=== PATIENT | female | born 2005 | race Caucasian/White ===

== ENCOUNTER 2024-11-24 08:33 | Emergency (ER) | payer BC, SELFPAY ==
[2024-11-24 08:40] VITALS: BP 126/76; PULSE 85; RESP 14; TEMP 37.1; O2SAT 100
--- OUTSIDE RECORDS SUMMARY | 2024-11-24 08:41 | XMS_ITS | Clinical Summary ---
Author Organization [facility] Address [address] [place] [address] Care Team Providers Care Car Seat Upholsterer Name Role Phone Caridad New MD Primary Care Provider [phone] Source Comments [facility],non-owned Affiliates and Associated Physician Practices is amultiple site organization consisting of ambulatory clinics and hospital sitesin [place], [place], [place] and [place]. This disclosure is being madepursuant to the Care Everywhere program and may not contain all information available regarding this patient. Last updated 18.[facility] Allergies No known active allergies Medications * Be aware that medications may not be up to date on this document. Alwaysverify current medications with the patient. 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 Gender Identity Not on file Sexual Orientation Not on file Last Filed Vital Signs Vital Sign Reading Time Taken Comments Blood Pressure - - Pulse - - Temperature - - Respiratory Rate - - Oxygen Saturation - - Inhaled Oxygen Concentration - - Weight 22.4 kg (49 lb 6.1 oz) 02/26/2012 2:29 P M CDT Height 123 cm (4' 0.43) 02/26/2012 2:29 PM CDT Body Mass Index 14.81 02/26/2012 2:29 PM CDT Plan of Treatment Health Maintenance Due Date Last Done Comments HIV SCREENING 2019 HPV VACCINE (1 - 3-dose series) 2019 CHLAMYDIA/GONORRHEA SCREENING 2020 MENINGOCOCCAL (Group B) VACC INE SHARED DECISION-MAKING (1 of 2 - Standard) 2020 HEPATITIS C SCREENING 04/05/2022 DTAP/TDAP/TD VACCINES (1 - Tdap) 2023 HEPATITIS B VACCINE (1 of 3 - 19+ 3-dose series) 2023 COVID-19 VACCINE (1 - 2023-2 5 season) 2024 DEPRESSION SCREENING 05/14/2024 INFLUENZA VACCINE (#1) 2025 ZOSTER VACCINE (1 of 2) 2054 HIB VACCINE Aged Out No longer eligi ble based on patient's age to complete this topic MENINGOCOCCAL GROUPS A/C/Y/W VACCINE Aged Out No longer eligible b ased on patient's age to complete this topic PNEUMOCOCCAL VACCINE Aged Out No long er eligible based on patient's age to complete this topic Insurance [facility] Care Teams Car Seat Upholsterer Relationship Specialty Start Date End Date Caridad New MD [address] [place] [address] PCP - General 04/12/11
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
--- OUTSIDE RECORDS SUMMARY | 2024-11-24 08:41 | XMS_ITS | Encounter Summary ---
Author Organization [facility] Healthcare Address [address] [place] [address] Care Team Providers Care Slate Picker Name Role Phone No, Physician Primary Care Provider [phone] Conner Nunez MD Unavailable [phone] Encounter Details Date Type Department Care Team (Late st Contact Info) Description 11/12/2024 Results Follow-Up [facility] [address] [place] [address] [address] [place] [address] Conner Nunez MD [address] [place] [address] [address] [place] [address] Transvaginal Social History Tobacco Use Types Packs/Day Years Used Date Smoking Tobacco: Former Vaping Smokeless Tobacco: Never Social Connection and Isolat ion Panel [NHANES] Answer Date Recorded In a typical week, how many times do you talk on the phone with family, friends, or neighbors? More than three times a week 02/18/2024 How often do you get togethe r with friends or relatives? Once a week 02/18/2024 How often do you attend chur ch or anabaptist services? Never 02/18/2024 Do you belong to any clubs o r organizations such as islam groups, unions, fraternal or athletic groups, or [...] staff should administer the PHQ-9) 0 02/18/2024 [facility] of Occupat ional [facility] - Occupational Stress Questionnaire Answer Date Recorded [...] things needed for daily living? No 02/18/2024 [place] Depression Scale Answer Date Recorded [place] Depression Scale Total 0 03/28/2024 The thought [...] any time in the past 12 m [facility], were you homeless or living in a alf (including now)? No 02/18/2024 Personal Safety Answer Date Recorded Have you ever been in or are you currently in a harmful physical or emotional relationship or is someone making you feel afraid or unsafe? 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
--- OUTSIDE RECORDS SUMMARY | 2024-11-24 08:41 | XMS_ITS | Clinical Summary ---
Author Organization [facility] Address [address] [place] [address] Care Team Providers Care Pickup Driver Name Role Phone No, Physician Primary Care Provider [phone] Conner Nunez MD Unavailable [phone] Allergies Active Allergy Reactions Criticality Noted Date Comments Escitalopram Nausea & Vomiting Low 02/08/2024 Medications prenat.vits,saundra,m kh-kava-skpkf tablet Take by mouth Active ibuprofen (ADVIL,MOTRIN) 600 mg tablet Take 1 tablet (600 mg total) by mouth every 6 (six) hours as needed for pain 40 tablet 03/18/20 24 Active levonorgestreL (LILETTA) 20.4 mcg/24 hr (8 [...] 1.5 cm from internal os. Resolved 12/07/23. Encounters Date Type Department Care Team Description 11/12/2024 Results Follow-Up Fallon Blake [address] [facility] [address] [place] [address] Conner Nunez MD Transvaginal 11/03/2024 11:30 AM CDT Ancillary Procedure Fallonanila Blake [address] [facility] [address] [place] [address] Pelvic and perineal pain; Menorrhagia with irregular cycle 10/31/2024 Telephone [place] MONA Blake [address] [facility] [address] [place] [address] Brooklynn Noriega 10/30/2024 12:33 PM CDT - 10/30/2024 3:04 PM CDT [facility] Emergency Department [address] [place] [address] Discharge Disposition: Left without being seen 10/30/2024 Telephone Fallonanila Blake [address] [facility] [address] [place] [address] Catalina Jimenez MA ABSEILING INSTRUCTOR Problem (Heavy bleeding) from Last 3 Months Immunizations Immunization Administration Dates Next Due Influenza, Trivalent, Preservative Free, Intramu scular 02/20/2024 Tdap 02/08/2024 Surgical History Surgery Date Site/Laterality Comments TONSILLECTOMY ADENOIDECTOMY W/ MYRINGOTOMY AND TUBES TYMPANOSTOMY TUBE PLACEMENT Medical History Medical History Date Comments Depression Anxiety PTSD (post-traumatic stress disorder) Family History Medical History Relation Name Comments No Known Problems Father No Known Problems Mother Relation Name Status Comments Father Mother Social History Tobacco Use Types Packs/Day Years [...] often do you attend chur ch or congregation services? Never 02/18/2024 Do you belong to any clubs o r organizations such as lutheran groups, unions, fraternal or athletic groups, or [...] staff should administer the PHQ-9) 0 02/18/2024 [facility] Occupat ional Health - Occupational Stress Questionnaire Answer Date Recorded [...] things needed for daily living? No 02/18/2024 [place] Depression Scale Answer Date Recorded [place] Depression Scale Total 0 03/28/2024 The thought [...] any time in the past 12 m [facility], were you homeless or living in a usp (including now)? No 02/18/2024 Personal Safety Answer Date Recorded Have you ever been in or are you currently in a harmful physical or emotional relationship or is someone making you feel afraid or unsafe? Denies 10/30/2024 Comments No Sex and Gender Information Value Date Recorded Sex Assigned at Not on file Legal Sex Female 4:54 PM MEDICAL CHEMIST Gender Identity Not on file Sexual Orientation Not on file Obstetrics History Para Term AB IAB SAB Ectopic Multiple Livin g Live Births 1 1 1 0 0 0 0 0 0 1 1 Date Outcome GA Total Labor Labor/2nd/3rd Weight Sex Type Anes PTL Zunilda A1 A5 Name Clin 2023 Term 39w 0d 4h 42m 3h 08m/1h 22m/0h 12m 3.519 kg (7 lb 12.1 oz) F Vagina l Epidur al N Livin g 9 9 Tyrella Sal Glass MD Complications:None Delivery Location:This Facil ity ([facility]) Last Filed Vital Signs Vital Sign Reading [...] 10/30/2024 12:55 PM CDT Plan of Treatment Health Maintenance Due Date Last Done Comments Meningococcal B Vaccine (1 of 2 - Standard) 2020 Chlamydia and Gonorrhea (GC/CT) Screening 01/19/2022 01/19/2021 Regular Well Visit/Exam 18-64 2022 Influenza Vaccine (#1) 2025 , 03/03/2020, 02/24/2019, Additional history exists Depression Screening 03/28/2025 03/28/2024, 02/18/2024, 01/21/2024, Additional history exists DTaP/Tdap/Td Vaccine (8 - Td or Tdap) 02/07/2034 02/08/2024, 11/25/2015, 11/16/2009, Additional history exists Hepatitis B Screening Completed 2004 , 2004, 2004, Additional history exists Pneumococcal vaccine <65 Completed 006, 2004, 2004, Additional history exists Varicella Vaccines Completed 11/16/2009, 04/18/2005 Meningococcal Vaccine Aged Out 11/25/2015 No meaghan angela eligible based on patient's age to complete this topic HPV Vaccines Completed 05/16/2016, 11/25/2015 Hepatitis C Screening Completed 08/24/2023, 021 Procedures Procedure Name Priority Date/Time Associated Diagnosis [...] BLOOD ORDERABLE S Final Result [facility] ([place]) [address] [facility] [place] [address] * Differential, auto (10/30/2024 1:00 PM CDT) [...] S Final Result [facility] ([place]) [address] [facility] [place] [address] * CBC with auto differential (10/30/2024 1:00 [...] ([place]) MCH 31.2 27.1 - 33.3 pg [facility] ([place]) MCHC 34.4 32.3 - 35.7 g/dL [facility] ([place]) RDW CV 13.5 11.1 - 14.9 % [facility] ([place] RDW SD 44.6 35.7 - 48.1 fL [facility] ([place]) NRBC abs 0.00 0.00 - 0.01 K/cumm [facility] ([place]) Blood 10/30/2024 1:00 PM CDT 10/30/2024 1:04 PM CDT Jeancarlos Ro MD LAB BLOOD ORDERABLE S Final Result Performing Organization Address City/[facility] Co de Phone Number [facility] ([place]) [address] [facility] [place] [address] * hCG, blood, quantitative (10/30/2024 1:00 PM CDT) hCG, quant <5.0 0.0 - 5.0 IUnits/L Comment: Interpretive Data Male: < 5 IU/L Non- premenopausal Female: <5 IU/L The Zhane hCG Beta Quant assay procedure was used. Results from different manufacturers or methods may not be comparable. Serial testing should be performed using the same method. Interpretive Data was last revised on 2023 Blood 10/30/2024 1:00 PM CDT 10/30/2024 1:31 PM CDT Jeancarlos Ro MD LAB BLOOD ORDERABLE S Edited Result - Final [facility] ([place]) [address] [facility] [place] [address] * Comprehensive metabolic panel (10/30/2024 1:00 PM CDT) Sodium 137 135 - 145 mmol/L Potassium, pl 4.1 3.3 - 4.9 mmol/L [facility] ([place]) Chloride 103 97 - 110 mmol/L [facility] ([place]) CO2 22 22 - 32 [...] classification and Diagnosis of Diabetes Diabetes Care 202; 46: S19-S40. Current interpretive data was last [...] MD LAB BLOOD ORDERABLE S Final Result [facility] ([place] [address] [facility] [place] [address] * Hepatitis C antibody Blood (08/24/2023 2:35 [...] last revised on 2019. Testing performed by: [facility], [address] [place] [address]., [address] Blood 08/24/2023 2:35 PM CDT 08/24/2023 6:31 PM CDT Conner Nunez MD LAB MICROBIOLOGY - GENERAL ORDERABLES Edited Result - Final [facility] ([place]) [address] [facility] [place] [address] * N. gonorrhoeae/C. trachomatis Amplification Urine (01/19/2021 7:26 AM CDT) C. trachomatis Not Detected Not Detected [facility] Comment:Testing performed by : [facility], [address] [facility] [place] [address] N. gonorrhoeae Not Detected Not Detected [facility] Comment: Interpretive Data Testing performed by the [facility]. This assay detects Chlamydia trachomatis and Neisseria gonorrhoeae by nucleic acid amplification testing (NAAT). This test is approved by the [facility] Food and Drug Administration and the performance characteristics have been verified by the laboratory. The performance characteristics of this test have not been evaluated in individuals less than 14 years of age. Current Interpretive Data was last revised on 2018. Testing performed by: [facility], [address] [facility] [place] [address] Urine (None) 01/19/2021 7:26 AM CDT 01/19/2021 9:20 AM CDT Brooklynn Feliz NP LAB MICROBIOLOGY - GENERA L ORDERABLES Final Result [facility] [address] [facility] [place] [address] from Last 3 Months or Most Recently Relevant to Health Maintenance Insurance ANTHEM ACCESS Member Subscriber Plan / Payer (Ef fective 2022-Present) Name:Daphnie Chauhan Member ID:[id number] Relation to Subscriber:Child Name:Franky Chauhan Subscriber ID:[id number] Date of :1981 (Home) Address: [address] [place] [address] [place] [address] Payer ID:[id number] (NAIC) Type:[facility] Address: [address] ANTHEM ACCESS IDPA [facility] Advance Directives For more information, please contact: [phone] * Full Code (Latest Code Status on File) Date Activated Date Inactivated Comments 02/18/2024 6:37 AM 02/20/2024 9:27 PM Full CPR in case of cardiopulmonary arrest * Full Code Date Activated Date Inactivated Comments 01/13/2021 1:37 PM 01/19/2021 7:32 PM Care Teams Pickup Driver Relationship Specialty Start Date End Date No, Physician PCP - General 06/04/23 Conner Nunez MD [address] [place] [address] [place] [address] Road Crew Member Obstetrics and Gynecology 02/20/24
--- OUTSIDE RECORDS SUMMARY | 2024-11-24 08:41 | XMS_ITS | Clinical Summary ---
Author Organization [facility] Address [address] [place] [address] Phone Care Team Providers Care Hoist Mechanic Name Role Phone Caridad New MD Primary Care Provider [phone] Medications sertraline (ZOLOFT) 100 MG Tablet Take 125 mg by mouth daily. 06/16/2020 Active Active Problems Problem Noted Date Diagnosed Date Major depressive disorder, recurrent, moderate 0 10/19/2021 Major depressive disorder 10/05/2021 Borderline personality disorder in adolescent Family History Medical History Relation Name Comments No Known Problems Brother Ajay (5) No Known Problems Father Jeremías No Known Problems Mother Prabha No Known Problems Sister 1 Libby (14) No Known Problems Sister 2 Muna (10) Relation Name Status Comments Brother Ajay (5) Alive Father Jeremías Alive Mother Prabha Alive Sister 1 Libby (14) Alive Sister 2 Muna (10) Alive Social History Tobacco Use Types Packs/Day Years Used Date Smoking Tobacco: Never Smokeless Tobacco: Never Alcohol Use Standard Drinks/Week Comments Not Currently 0 (1 standard drink = 0.6 oz pur e alcohol) Sexually Active Control Partners Comments Not Currently Female, Male Comments Unknown Sex and Gender Information Value Date Recorded Sex Assigned at Not on file Legal Sex Female 7:53 PM CDT Gender Identity Not on file Sexual Orientation Not on file Plan of Treatment Health Maintenance Due Date Last Done Comments Hepatitis C Virus (HCV) Screening 2004 Meningococcal B Immunization (1 of 2 - Standard) 2020 SARS-COV-2 Immunization ( season) 2024 Influenza Immunization (#1) 01/12/202502/12, 02/24/2019, 03/28/2016 Respiratory Syncytial Virus (RSV) Immunization (Adult) (1 - 1-dose 75+ series) 2079 Hepatitis B Immunization Completed 005, 2004, 2004, Additional history exists Pneumococcal Immunization Combined Aged Out 07/20/2005, 2004, 2004, Additional history exists No longer eligible based on patient's age to complete this topic Hepatitis A Immunization Discontinued 04/23/2007, 10/13 Measles Mumps Rubella (MMR) Immunization Discontinued 11/16/2009, 04/18/2005 Polio (IPV) Immunization Discontinued 010, 2004, 2004, Additional history exists Varicella Immunization Discontinued 11/16/2009, 2004 DTaP/Tdap/Td Immunization Discontinued 2015, 11/16/2009, 07/20/2005, Additional history exists TdaP Immunization Completed 11/25/2015 Human Papillomavirus (HPV) Immunization Completed 05/16/2016, 11/25/2015 Meningococcal Immunization (ACWY) Completed 12/28/2020, 11/25/2015 Rotavirus Immunization Aged Out No lo nger eligible based on patient's age to complete this topic Goals Goal Patient Goal Type Associated Problems Recent Progress Patient-Stated? Author Patient to report a decrease in the intensity and frequency of depressive symptoms Behavioral Health Improving( 2:05 PM CDT) No Destinee Abel, BUSINESS OBJECTS REPORT DEVELOPER Note: 1. Patient to learn to identify negative thoughts and refram. 2. Patient to learn and utilize coping skills. 3. Patient to learn and utilize communication skills. I would like help with anger management, quit self harming. Behavioral Health Improving( 2:04 PM CDT) Yes Destinee Abel, BUSINESS OBJECTS REPORT DEVELOPER Note: Goal Reviewed with: patient Readiness to change: Ready to change Department associated with goal: [facility] Steps to achieve goal: 1. will identify, at least three, triggers to distressing mood change. 2. will identify, at least two ways/skills to prevent depressed (or other problematic) mood. 3. will identify, at least two ways/skills to cope with depressed (or other problematic) mood. 4. will implement one prevention and one coping skill and evaluate effectiveness 5. Will attend individual and/or group therapy at least 1x/month Barbara will learn Distress Tolerance Skills to help manage unhealthy responses to emotional distress Behavioral Health No change(01/02 1:58 PM CDT) No Teressa Rashid LCSW Note: Goal/Objective: Decrease the frequency and intensity of emotional distress. Anticipated Time Frame for Goal Completion: 6 months Goal Reviewed with: patient Readiness to change: Thinking about making a change Department associated with goal: [facility] Steps to achieve goal: will attend psychotherapy/counseling at least monthly at least 6 sessions and self disclose to have an outlet for distressing thoughts and feelings. will identify at least two ways to engage in self expression and to gain relief from distressing emotions and thoughts. will implement skills to tolerate and frustration and emotional distress Insurance [place] [facility] [place] Care Teams Hoist Mechanic Relationship Specialty Start Date End Date Caridad New MD [address] [facility] [place] [address] PCP - General Pediatrics 12/05/19
--- OUTSIDE RECORDS SUMMARY | 2024-11-24 08:44 | XMS_ITS | Patient Health Record ---
Author Organization [facility] [employer] [facility] Address [address] [place] [address] Care Team Providers Care Termite Exterminator Name Role Phone Geoffrey Funes Unavailable [phone] Reason For Referral No Information Medications Medication SIG (Take, Route, Frequency, Duration) Notes Start Date End Date Status Mirtazapine 15 MG Oral 10/06/2022 A ctive Escitalopram Oxalate 20 MG Oral 10/06/2022 Active Azurette 0.15-0.02/0.01 MG (01/10) Oral 10/06/2022 Active Encounters Encounter Location Date Provider Diagnosis [facility] [address] [facility] [address] [facility] [address] [place] [address] 12/20/2023 Geoffrey Funes Plan Of Treatment No Information Insurance Providers Payer Name Payer Address Payer Phone Subscriber Number Group Number Insured Name Patient Relationship to Insured Coverage Start Date Coverage End Date [facility] [address] [place] [address] [id number] FRANKY BURGOS Child - Insured has Financial Responsibility
[2024-11-24 08:56] LABS: BEDSIDEPREGUCG Negative (Negative); EDUAAPPEAR Cloudy; EDUABILI Negative (Negative); EDUABLOOD Trace (Negative); EDUACOLOR1 Yellow; EDUAGLUCOSE Negative (Negative); EDUAKETONE Negative (Negative); EDUALEUKO 1+ (Negative); EDUANITRATE Negative (Negative); EDUAPH 7.0; EDUAPROTEIN 1+ (Negative); EDUASPGRAVITY 1.025; EDUAUROBILI 0.2
--- NOTE | 2024-11-24 09:09 | ED.ABDPAIN ---
HPI - Abdominal Pain General Chief Complaint: Abdominal Pain Stated Complaint: Right side pain/nausea Time Seen by Provider: 11/24/24 08:45 Source: patient and RN notes reviewed Mode of arrival: ambulatory Limitations: no limitations History of Present Illness HPI narrative: 19-year-old female presents Express Care complaining of right lower abdominal pain for approximately 1 month. Said over the last 3 days it has got progressively worse along with nausea. Patient also reports dysuria occasionally. Patient states the abdominal pain is nonradiating and has not migrated. Patient denies any significant past medical history. Patient denies any abdominal surgeries. Patient denies any fevers body aches, chills, vomiting, diarrhea, hematuria, flank pain, back pain, chest pain, dyspnea, or any other symptoms. Related Data Home Medications ?Medication ?Instructions ?Recorded ?Confirmed ?Last Taken ?Type lamotrigine 25 mg tablet mg 11/24/24 Unknown History Allergies Allergy/AdvReac Type Severity Reaction Status Date / Time escitalopram (From Lexapro) Allergy Unknown Verified 11/24/24 08:44 Review of Systems Review of Systems: CONSTITUTIONAL: Denies fever, chills, body aches, or sweats. EYES: Denies visual changes, redness, or discharge. ENT: Denies rhinorrhea, congestion, sore throat, or otalgia. CARDIOVASCULAR: Denies chest pain, palpitations, or edema. RESPIRATORY: Denies cough or dyspnea. GASTROINTESTINAL: Positive for abdominal pain and nausea. Negative for vomiting, or diarrhea. GENITOURINARY: Positive for dysuria. Negative for hematuria. SKIN: Denies rash or itching. MUSCULOSKELETAL: Denies back pain, joint pain, or myalgia. NEUROLOGIC: Denies headache, numbness, or weakness. PSYCHIATRIC: Denies anxiety or depression. All other systems reviewed are negative, except as documented in HPI. PMFSH Comments At the time of my signature, I reviewed and agree with the nursing past medical, surgical, social, and family history. There is no relevant family history pertinent to the patient complaint. Exam Narrative: GENERAL: This is a well-nourished, well-developed adult, in no apparent distress. They are non ill-appearing, nontoxic appearing. HEAD: normocephalic, atraumatic. EYES: Sclera clear/white. Vision is grossly intact. Conjunctiva normal bilaterally. Extraocular movements intact. EARS: External ears normal,Hearing grossly intact. NOSE: External nose normal THROAT: Mucous membranes moist NECK: Normal range of motion CARDIOVASCULAR: Regular rate and rhythm. Normal S1-S2. No clicks, gallops, rubs, murmurs. RESPIRATORY: Respiratory rate normal, respiratory effort nonlabored, no respiratory distress. Lung sounds clear to auscultation throughout. Lung sounds equal bilaterally. No adventitious lung sounds. GASTROINTESTINAL: Abdomen soft, flat, tenderness to palpation to the right lower quadrant, nondistended. Bowel sounds are active. No hepato-splenomegaly, or palpable masses. No guarding or rigidity. No rebound tenderness. Positive obturator sign and rovsing sign. SKIN: warm, Dry, intact with no suspicious lesions or rash, good texture and turgor. NEURO: awake, alert, and oriented to person, place and time. There were no obvious focal neurologic abnormalities. EXTREMITIES: No joint tenderness, effusion, or edema noted. BACK: Nontender without deformity. Left CVA tenderness. Course Course Emergency Course: Portions of this record may have been created with voice recognition software Level of Care: Express Care Visit Vital Signs Vital signs: Vital Signs Temperature 98.8 F 11/24/24 08:40 Pulse Rate 85 11/24/24 08:40 Respiratory Rate 14 11/24/24 08:40 Blood Pressure 126/76 11/24/24 08:40 Pulse Oximetry 100 11/24/24 08:40 Oxygen Delivery Room Air 11/24/24 08:40 Temperature 98.8 F 11/24/24 08:40 Pulse Rate 85 11/24/24 08:40 Respiratory Rate 14 11/24/24 08:40 Blood Pressure 126/76 11/24/24 08:40 Pulse Oximetry 100 11/24/24 08:40 Oxygen Delivery Room Air 11/24/24 08:40 Transfer Transfered to: [facility] Transportation: Other (Private vehicle) Transfer rationale: Patient requiring Higher level care, for the lab work and advanced imaging, right lower abdominal pain, rule out appendicitis or any other intra-abdominal processes. Accepting physician: Dr. Mcgovern MDM - Abdominal Pain MDM Narrative Medical decision making narrative: Urine dipstick shows evidence of urinary tract infection. Urine hCG is negative. Urine culture pending. Exam findings concerning for appendicitis however pain has been going on for the last month past got worse over the last 3 days. Given patient's symptoms, it is recommend the patient seek a higher level care and proceed immediately to the emergency department. Patient is agreeable to go to [facility] ER. Patient requesting prescription for urinary tract infection, will send a prescription of cephalexin over, however advised patient she needs to go to the ER immediately. Patient verbalized understanding. Call over to [facility] ER and spoke to Doyle NELSON who is aware this patient and Dr. Mcgovern who accepted the patient for transfer. Patient advised to remain NPO and proceed immediately to the ER. Patient to go by private vehicle. Patient hemodynamically stable transfer. Differential Diagnosis Differential diagnosis: Likely acute appendicitis, constipation and other (Ovarian cyst, ectopic , urinary tract infection, renal colic, pyelonephritis) Lab Data Attestation: I reviewed the patient's lab results. Labs: Lab Results 11/24/24 Range/Units 08:52 POC Urine Color Yellow POC Urine Clarity Cloudy POC Urine pH 7.0 POC Ur Specif [place] 1.025 POC Urine Protein 1+ (Negative) POC Ur Glucose (UA) Negative (Negative) POC Urine Ketones Negative (Negative) POC Urine Blood Trace (Negative) POC Urine Nitrite Negative (Negative) POC Urine Bilirubin Negative (Negative) POC Urine Urobilinogen 0.2 POC U Leukocyte Esteras 1+ (Negative) POC Urine HCG, Qual Negative (Negative) Discharge Plan Discharge Clinical Impression: Right lower quadrant abdominal pain Urinary tract infection Qualifiers: Urinary tract infection type: site unspecified Hematuria presence: with hematuria Qualified Code(s): N39.0 - Urinary tract infection, site not specified Patient Disposition: Acute Care Hospital Condition: Stable Additional Instructions: Please go to the ER immediately for further evaluation of your right lower abdominal pain. I Will send a prescription over for urinary tract infection Take the antibiotic as prescribed The urine will be sent of for a culture to identify what type of bacteria is causing your infection. If the culture shows that the antibiotic will not get rid of your infection, you will be notified and a new antibiotic will be called in for you. Increase water intake you will need to follow up with your PCP 3-5 days. Patient Language: German Prescriptions: New cephalexin 500 mg capsule 500 mg PO BID 5 Days Qty: 10 0RF No Action lamotrigine 25 mg tablet Follow-up/Referrals: PHYSICIAN,APPLICATION TECHNICAL DESIGNER [Primary Care Provider] - Stand Alone Forms: Work/School Release IP Time of Disposition: :07
== END 2024-11-24 09:17 | disposition short-term general hospital (02) ==
DX: R10.31 Right lower quadrant pain (principal); N39.0 Urinary tract infection, site not specified
CPT/HCPCS: 81003; 81025; 87086; 99203; G0463